=== PATIENT | female | born 1995 | race Caucasian/White ===

== ENCOUNTER → 2020-02-10 | Outpatient (CLI) | payer OTHER ==
--- NOTE | 2020-02-10 07:59 | US ---
EXAMINATION TYPE: US pelvis complete transvag DATE OF EXAM: 02/10/2020 COMPARISON: NONE CLINICAL HISTORY: RLQ Abd pain R10.31. Pt states RLQ pain TECHNIQUE: Transvaginal (TV) and Transabdominal (TA) . Transabdominal sonographic images of the pel vis were acquired. Transvaginal sonographic images were medically necessary to better assess the fol lowing anatomy: Ovaries Date of LMP: 01/31/2020 EXAM MEASUREMENTS: Uterus: 5.4 x 2.9 x 3.6 cm Endometrial Stripe: 0.4 cm Right Ovary: 3.1 x 2.1 x 3.2 cm Left Ovary: 2.8 x 1.8 x 3.1 cm 1. Uterus: Anteverted Heterogeneous 2. Endometrium: wnl 3. Right Ovary: Multiple follicles 4. Left Ovary: Multiple follicles 5. Bilateral Adnexa: wnl 6. Posterior cul-de-sac: wnl IMPRESSION: Uterine measurements as described. Uterus is somewhat poorly defined.
== END | disposition home or self-care (01) ==
LOC: RADUSWWP 06:58
PROVIDERS: ATTEND Family Medicine
DX: R10.31 Right lower quadrant pain (principal)
CPT/HCPCS: 76830; 76856